=== PATIENT | male | born 1980 | race Caucasian/White ===

== ENCOUNTER 2016-04-02 03:34 | Emergency (ER) | payer OTHER ==
[~2016-04-02] VITALS: Ht 177.8 cm; Wt 77.0 kg
[~2016-04-02 03:34] MED LIST: PROM5SYR2 PO; PSEU120T51 PO
[2016-04-02 03:36] VITALS: Ht 177.8 cm; Wt 77.0 kg
--- NOTE | 2016-04-02 04:48 | ERD ---
ER Documentation Chief Complaint Date/Time DATE: 04/02/16 TIME: 04:45 Chief Complaint chronic cough HPI 35-year-old male presents here in emergency department for complaints of cough for 2 weeks. Patient was seen here in emergency department, was given promethazine with codeine, was told to possibly have a viral infection. Today, patient started drinking wine, patient started to have coughing again, patient states that it is worse upon laying down, feels some possibility in his throat whenever coughing whenever lying down. Patient could not sleep because of the coughing. ROS All systems reviewed and are negative except as per history of present illness. Medications Home Meds Active Scripts Pseudoephedrine Hcl (Sudafed 12 Hour) 120 Mg Tablet.sa, 120 MG PO BID, #6 Prov:MIGDALIA KERR PA-C 03/22/16 Promethazine HCl/Codeine (Prometh-Codein 6.25-10 mg/5 ml) 5 Ml Syrup, 5 ML PO Q6 , #4 OZ Prov:MIGDALIA KERR PA-C 03/22/16 Allergies Allergies: Coded Allergies: No Known Allergy (Unverified , 03/21/16) PMhx/Soc Medical and Surgical Hx: pt denies Medical Hx, pt denies Surgical Hx History of Surgery: No Anesthesia Reaction: No Hx Neurological Disorder: No Hx Respiratory Disorders: No Hx Cardiac Disorders: No Hx Psychiatric Problems: No Hx Miscellaneous Medical Probl: No Hx Alcohol Use: Yes (Social) Hx Substance Use: No Hx Tobacco Use: Yes (Quit 2009) Smoking Status: Former smoker FmHx Family History: diabetes, No coronary disease, No other Physical Exam Vitals Vital Signs Date Time Temp Pulse Resp B/P Pulse Ox O2 Delivery O2 Flow Rate FiO2 04/02/16 03:36 98.3 85 20 133/68 97 Physical Exam GENERAL: The patient is well developed and appropriate for usual state of health, in no apparent distress. CHEST: Clear to auscultation bilaterally. There are no rales, wheezes or rhonchi. HEART: Regular rate and rhythm. No murmurs, clicks, rubs or gallops. No S3 or S4. ABDOMEN: Soft, nontender and nondistended. Good bowel sounds. No rebound or guarding. No gross peritonitis. No gross organomegaly or masses. No Funk sign or McBurney point tenderness. BACK: No midline or flank tenderness. EXTREMITIES: Equal pulses bilaterally. There is no peripheral clubbing, cyanosis or edema. No focal swelling or erythema. Full range of motion. Grossly neurovascularly intact. NEURO: Alert and oriented. Cranial nerves 2-12 intact. Motor strength in all 4 extremities with 5/5 strength. Sensation grossly intact. Normal speech and gait. SKIN: There is no apparent rash or petechia. The skin is warm and dry. HEMATOLOGIC AND LYMPHATIC: There is no evidence of excessive bruising or lymphedema. No gross cervical, axillary, or inguinal lymphadenopathy. Results 24 hrs Current Medications Medications (Trade) Dose Ordered Sig/Nya Route PRN Reason Start Time Stop Time Status Last Admin Dose Admin Miscellaneous Medication (Gi Cocktail (2)) 40 ml ONCE ONCE PO 04/02/16 05:00 04/02/16 05:01 DC 04/02/16 05:06 GI cocktail was given here in emergency department, after treatment, patient verbalized feeling much better. PROCEDURE: XR Chest. CLINICAL INDICATION: cough 2 weeks TECHNIQUE: Single frontal chest x-ray. COMPARISON: None. FINDINGS: There is hypoinflation of the lungs and mild bibasilar atelectasis. Patchy infiltrates at the lung bases are not excluded. Heart size is within normal limits. Degenerative changes in thoracic spine. The patient is minimally rotated to the left. There is appearance of mild curvature of the thoracic spine with convexity to the right. IMPRESSION: Hypoinflation of the lungs and mild bibasilar atelectasis. Patchy infiltrates at the lung bases are not excluded. Please see above. RPTAT: HJES .Reinaldo Hanson MD, MD Date Time Electronically viewed and signed by .Reinaldo Hanson MD, on 04/02/2016 04:51 .S/ CC: MARBELLA RAMIREZ [employer] WORKER Procedures/MDM Medical Decision Making: Patient symptoms are most likely consistent with chronic cough caused by possible acid reflux disease. A trial of antibiotics will also be used, can be atypical infection. There is low suspicion for Pneumonia at this time since patients lungs sounds are clear, patient O2 saturation is normal and patient doesnt show any respiratory distress. Patients chest xray doesnt show infiltrates or any other cardiopulmonary emergencies at this time. There is low suspicion for other cardiopulmonary emergencies at this time such as CHF, Pulmonary Embolism, Pneumothorax, Aortic Aneurysm or any other cardiopulmonary emergencies at this time. There is low suspicion for sepsis. Patient appears well and is hemodynamically stable. Fever is controlled with medicines. Disposition: Home. Condition: Stable Prescriptions: Mylanta, omeprazole, Tessalon Perle, azithromycin Instructions: Patient is advised to take medications as prescribed. Patient is advised to rest. Patient advised to increase fluid intake, do humidifier at home and if possible, do salt water gargles. Patient is advised that if symptoms are worse, shortness of breath, uncontrolled fever, stridor, vomiting, worst signs and symptoms to return to emergency department immediately. Otherwise, patient is advised to follow up with primary doctor in 5-7 days. Departure Diagnosis: Primary Impression: Chronic cough Condition: Stable Patient Instructions: Cough, Chronic, Uncertain Cause, (Adult) Additional Instructions: Patient is advised to take medications as prescribed. Patient is advised to rest. Patient advised to increase fluid intake, do humidifier at home and if possible, do salt water gargles. Patient is advised that if symptoms are worse, shortness of breath, uncontrolled fever, stridor, vomiting, worst signs and symptoms to return to emergency department immediately. Otherwise, patient is advised to follow up with primary doctor in 5-7 days. MARBELLA RAMIREZ NP Apr 02, 2016 04:48
--- NOTE | 2016-04-02 04:51 | RADRPT ---
PROCEDURE: XR Chest. CLINICAL INDICATION: cough 2 weeks TECHNIQUE: Single frontal chest x-ray. COMPARISON: None. FINDINGS: There is hypoinflation of the lungs and mild bibasilar atelectasis. Patchy infiltrates at the lung bases are not excluded. Heart size is within normal limits. Degenerative changes in thoracic spine . The patient is minimally rotated to the left. There is appearance of mild curvature of the thora cic spine with convexity to the right. IMPRESSION: Hypoinflation of the lungs and mild bibasilar atelectasis. Patchy infiltrates at the lung bases are not excluded. Please see above. RPTAT: HJES .Reinaldo Hanson MD, MD Date Time Electronically viewed and signed by .Reinaldo Hanson MD, MD on 04/02/2016 04:51 .S/
[2016-04-02] MEDS ORDERED: LIDOCAINE/MYLANTA 40 ML BTL PO ONE (05:00)
[2016-04-02] MEDS ORDERED: OMEP20CA16 PO (05:22)
[2016-04-02] MEDS ORDERED: BENZ100C70 PO (05:22)
[2016-04-02] MEDS ORDERED: AZIT250T94 PO (05:22)
[2016-04-02] MEDS ORDERED: MAG-19 PO (05:22)
== END 2016-04-02 05:34 | disposition home or self-care (01) ==
LOC: FTE 03:34
DX: R05 Cough (principal); Z87.891 Personal history of nicotine dependence
CPT/HCPCS: 71010; Z7502; Z7610; 99283

== ENCOUNTER 2017-03-21 23:08 | Emergency (ER) | END 2017-03-22 03:51 | disposition home or self-care (01) ==

== ENCOUNTER 2018-05-06 02:49 | Emergency (ER) | payer OTHER ==
[~2018-05-06] VITALS: Wt 80.6 kg
[~2018-05-06 02:49] MED LIST changes: +AZIT250T PO; +BENZ-6 PO; +CYCL10TA7 PO; +HYDR-4011 PO; +IBUP-1542 PO; +MAG-19 PO; +OMEP20CA16 PO; +PSEU120T12 PO; -PSEU120T51 PO
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
[2018-05-06] MEDS ORDERED: HYDROCODONE/APAP (10/325) TAB PO ONE (03:30)
[2018-05-06] MEDS ORDERED: KETOROLAC 30 MG INJ IM STA (05:30)
[2018-05-06] MEDS ORDERED: META-121 PO (05:33)
[2018-05-06] MEDS ORDERED: IBUP800T48 PO (05:33)
[2018-05-06 05:47] VITALS: BP 119/70; PULSE 110; RESP 18
== END 2018-05-06 05:50 | disposition home or self-care (01) ==
LOC: FTE 02:49
DX: S06.0X0A Concussion without loss of consciousness, initial encounter (principal); S00.83XA Contusion of other part of head, initial encounter; S10.93XA Contusion of unspecified part of neck, initial encounter; S30.0XXA Contusion of lower back and pelvis, initial encounter; S20.219A Contusion of unspecified front wall of thorax, initial encounter; V43.52XA Car driver injured in collision with other type car in traffic accident, initial encounter; Z87.891 Personal history of nicotine dependence
CPT/HCPCS: 70450; 71046; 72100; 72125; 96372; J1885; Z7502; Z7610

== ENCOUNTER 2019-01-18 11:55 | Emergency (ER) | payer OTHER ==
[~2019-01-18] VITALS: Ht 162.6 cm; Wt 80.0 kg
[~2019-01-18 11:55] MED LIST changes: +ACET500C5 PO; +BISM262O23 PO; +FAMO-96 PO; +IBUP800T48 PO; +META-121 PO; -OMEP20CA16 PO; +OMEP20CA17 PO; +ONDA4TAB14 PO
[2019-01-18 11:59] VITALS: BP 143/65; PULSE 95; RESP 18; Ht 162.6 cm; Wt 80.0 kg
[2019-01-18] MEDS ORDERED: FAMOTIDINE 20 MG TAB PO STA (12:38)
[2019-01-18] MEDS ORDERED: LIDOCAINE 2% VISC 10 ML CUP PO ONE (13:00)
== END 2019-01-18 13:36 | disposition home or self-care (01) ==
LOC: FTE 11:55
DX: R10.13 Epigastric pain (principal); Z87.891 Personal history of nicotine dependence
CPT/HCPCS: Z7502; Z7610; 99283